=== PATIENT | male | born 1960 | race Caucasian/White ===

== ENCOUNTER 2017-05-20 11:30 | Emergency (ER) | payer BC ==
[2017-05-20 11:37] VITALS: RESP 18
[2017-05-20] MEDS ORDERED: methylPREDNISolone SOD SUCCI 125 MG/2 ML VIAL IM ONE (12:11)
[2017-05-20] MEDS ORDERED: HYDROcodone/APAP 10-325MG 1 EACH TAB PO ONE (12:11)
[2017-05-20] MEDS ORDERED: ORPHENADRINE 30 MG/ML 2 ML VIAL IM STA (12:11)
--- NOTE | 2017-05-20 12:52 | ED ---
Back Pain HPI - General Chief Complaint: Back Pain/Injury Stated Complaint: back pain Time Seen by Provider: 05/20/17 11:44 Source: patient, RN notes reviewed, old records reviewed Limitations: no limitations - History of Present Illness Initial Comments: This is a 56-year-old male present emergency department today chief complaint of back pain after taking a step up 3 feet up and pulling his back. . He reports his been radiating towards his right leg. He reports he has a "sleeping " sensation in his right leg. Patient states he has no saddle anesthesias. Denies any fevers chills. Denies any popping sensations in his back. Patient denies any recent fever, chills, shortness of breath, chest pain, abdominal pain, nausea vomiting, numbness or tingling, dysuria or hematuria, constipation or diarrhea, headaches or visual changes, or any other current symptoms - Related Data Home Medications Medication Instructions Recorded Confirmed Acetaminophen [Tylenol Arthritis] 1,300 mg PO Q12H PRN 05/20/17 05/20/17 Cyclobenzaprine [Flexeril] 10 mg PO DAILY PRN 05/20/17 05/20/17 Diazepam [Valium] 5 mg PO ONCE PRN 05/20/17 05/20/17 HYDROcodone/APAP 5-325MG [Golden 1 tab PO ONCE PRN 05/20/17 05/20/17 5-325] Ibuprofen [Motrin Ib] 800 mg PO Q6H PRN 05/20/17 05/20/17 Previous Rx's Medication Instructions Recorded Cyclobenzaprine [Flexeril] 10 mg PO TID #15 tab 05/20/17 Dexamethasone 0.75 mg PO DAILY #12 tab 05/20/17 Hydrocodone/Acetaminophen [Golden 1 tab PO Q6HR PRN #15 tab 05/20/17 5-325] Allergies Allergy/AdvReac Type Severity Reaction Status Date / Time No Known Allergies Allergy Verified 05/20/17 11:53 Review of Systems ROS Statement: Those systems with pertinent positive or pertinent negative responses have been documented in the HPI. ROS Other: All systems not noted in ROS Statement are negative. Past Medical History Past Medical History: No Reported History History of Any Multi-Drug Resistant Organisms: None Reported Past Surgical History: No Surgical Hx Reported Past Psychological History: No Psychological Hx Reported Smoking Status: Never smoker Past Alcohol Use History: None Reported Past Drug Use History: None Reported General Exam - General Exam Comments Initial Comments: Pleasant appearing 56-year-old male. No acute distress. Limitations: no limitations General appearance: alert, in no apparent distress Head exam: Present: atraumatic, normocephalic, normal inspection Eye exam: Present: normal appearance ENT exam: Present: normal exam, mucous membranes moist Neck exam: Present: normal inspection. Absent: tenderness, meningismus, lymphadenopathy Respiratory exam: Present: normal lung sounds bilaterally. Absent: respiratory distress, wheezes, rales, rhonchi, stridor Cardiovascular Exam: Present: regular rate, normal rhythm, normal heart sounds. Absent: systolic murmur, diastolic murmur, rubs, gallop, clicks GI/Abdominal exam: Present: soft, normal bowel sounds. Absent: distended, tenderness, guarding, rebound, rigid Extremities exam: Present: normal inspection, full ROM, normal capillary refill. Absent: tenderness, pedal edema, joint swelling, calf tenderness Back exam: Present: normal inspection, other (Right-sided sciatica notch tenderness.). Absent: full ROM (Patient reports pain with sitting up.) Neurological exam: Present: alert, oriented X3, CN II-XII intact Psychiatric exam: Present: normal affect, normal mood Skin exam: Present: warm, dry, intact, normal color. Absent: rash Course Vital Signs 05/20/17 05/20/17 11:34 13:21 Temperature 98.3 F 98.5 F Pulse Rate 80 72 Respiratory 18 18 Rate Blood Pressure 138/73 127/60 O2 Sat by Pulse 99 98 Oximetry Medical Decision Making - Medical Decision Making This is a 56-year-old male present emergency department today chief complaint of back pain after taking a step up 3 feet up and pulling his back. . He reports his been radiating towards his right leg. He reports he has a sleeping sensation in his right leg. Patient pain is reproduced with certain position. He is resting comfortably in bed, and has no focal tedneress at this time, only with certain movement. Patient given IM steriods and pain medication. Patient lumbar spine shows mild spondylolithesis. Discussed following up with PCP. Discussed return paramaters and return oarameters dsicussed. - Radiology Data Radiology results: report reviewed Lumbar spine shows mild spondylolisthesis. No evidence of any acute fracture or dislocations. Disposition Clinical Impression: Injury of sciatic nerve at hip and thigh level, left leg, initial encounter Disposition: HOME SELF-CARE Condition: Good Instructions: Acute Low Back Pain (ED) Additional Instructions: Patient advised to follow-up with primary care physicians. Take the steroid taper pack and pain medicine as prescribed. Return to the emergency department if any alarming signs or symptoms occur. Prescriptions: Cyclobenzaprine [Flexeril] 10 mg PO TID #15 tab Dexamethasone 0.75 mg PO DAILY #12 tab Hydrocodone/Acetaminophen [Golden 5-325] 1 tab PO Q6HR PRN #15 tab PRN Reason: Pain Referrals: None,Stated [Primary Care Provider] - 1-2 days Kiara Page MD [STAFF PHYSICIAN] - 1-2 days Molly Moscoso MD [STAFF PHYSICIAN] - 1-2 days Pete Moreau MD [STAFF PHYSICIAN] - 1-2 days Time of Disposition: 13:30
[2017-05-20 13:21] VITALS: BP 127/60; PULSE 72; TEMP 98.5
--- NOTE | 2017-05-20 13:26 | XR ---
EXAMINATION TYPE: XR lumbar spine 2 or 3V DATE OF EXAM: 05/20/2017 COMPARISON: NONE HISTORY: Back pain TECHNIQUE: 3 views FINDINGS: Lumbar vertebra have normal alignment. There is hypertrophic spurring anteriorly in the mid and lower lumbar spine. Posterior elements are intact. Sacroiliac joints appear normal. IMPRESSION: Mild spondylotic changes. No fracture seen.
== END 2017-05-20 14:07 | disposition home or self-care (01) ==
LOC: EC 11:30
DX: S74.02XA Injury of sciatic nerve at hip and thigh level, left leg, initial encounter (principal); X50.9XXA Other and unspecified overexertion or strenuous movements or postures, initial encounter
CPT/HCPCS: 72100; 99284; 96372 ×2; J2360; J2930

== ENCOUNTER → 2017-06-02 | Outpatient (CLI) | payer BC ==
[2017-06-02 09:30] LABS: Basophils # (A) 0.1 k/uL (0-0.2); Basophils % (A) 1 %; Eosinophils # (A) 0.3 k/uL (0-0.7); Eosinophils % (A) 3 %; HCT 46.2 % (39.0-53.0); HGB 15.3 gm/dL (13.0-17.5); Lymphocytes # (A) 1.8 k/uL (1.0-4.8); Lymphocytes % (A) 20 %; MCH 28.9 pg (25.0-35.0); MCHC 33.1 g/dL (31.0-37.0); MCV 87.2 fL (80.0-100.0); Mean Platelet Volume 7.2; Monocytes # (A) 0.5 k/uL (0-1.0); Monocytes % (A) 6 %; Neutrophils # (A) 6.2 k/uL (1.3-7.7); Neutrophils % (A) 70 %; Platelet Count 269 k/uL (150-450); RBC 5.31 m/uL (4.30-5.90); RDW 13.2 % (11.5-15.5); WBC 8.9 k/uL (3.8-10.6)
[2017-06-02 11:28] LABS: ALT 38 U/L (21-72); AST 22 U/L (17-59); Alkaline Phosphatase 64 U/L (38-126); Anion Gap 11 mmol/L; Blood Urea Nitrogen 12 mg/dL (9-20); Calcium 9.5 mg/dL (8.4-10.2); Carbon Dioxide 26 mmol/L (22-30); Chloride 107 mmol/L (98-107); Cholesterol 186 mg/dL (<200); Glucose 101 mg/dL (74-99); HDL Cholesterol 35 mg/dL (40-60); LDL Cholesterol,Calculated 128 mg/dL (0-99); Potassium 4.6 mmol/L (3.5-5.1); Sodium 144 mmol/L (137-145); Total Bilirubin 0.4 mg/dL (0.2-1.3); Total Protein 7.2 g/dL (6.3-8.2); Triglycerides 117 mg/dL (<150)
[2017-06-02 11:55] LABS: PSA Annual Screen 0.52 ng/mL (0.00-4.00)
== END | disposition home or self-care (01) ==
LOC: LABWHC1 08:56
PROVIDERS: ATTEND Family Medicine
DX: E66.9 Obesity, unspecified (principal); M54.16 Radiculopathy, lumbar region; Z80.42 Family history of malignant neoplasm of prostate; Z12.5 Encounter for screening for malignant neoplasm of prostate
CPT/HCPCS: 80061; 80053; 85025; 36415; G0103

== ENCOUNTER 2024-09-26 10:17 | Day surgery (SDC) | payer BC ==
[2024-09-26] MEDS: IV FLUID CONTINUATION 1,000 ML IV ONE (10:30)
[2024-09-26 10:40] VITALS: TEMP 97.5
[2024-09-26 10:46] LABS: Glucose,Whole Blood 105 mg/dL (70-110)
[2024-09-26] MEDS: LACTATED RINGERS 1,000 ML IV SCH (10:48)
[2024-09-26] MEDS ORDERED: PROPOFOL 10 MG/ML 20 ML VIAL IV ONE (11:43)
--- NOTE | 2024-09-26 11:55 | P.PCN ---
Date of Procedure: 09/26/24 Procedure(s) Performed: BRIEF HISTORY: Patient is a 63-year-old pleasant white male scheduled for an elective colonoscopy as a part of screening for colon cancer. PROCEDURE PERFORMED: Colonoscopy. PREOPERATIVE DIAGNOSIS: Screening for colon cancer. IV sedation per Anesthesia. PROCEDURE: After informed consent was obtained, the patient, was brought into the endoscopy unit. IV sedation was administered by Anesthesia under continuous monitoring. Digital rectal examination was normal. Initially the Olympus CF-160 flexible video colonoscope was then inserted in the rectum, gradually advanced into the cecum without any difficulty. Careful examination was performed as the scope was gradually being withdrawn. Ileocecal valve and the appendiceal orifice were visualized and appeared normal. Prep was excellent. Mucosa of the cecum, ascending colon, transverse colon, descending colon, sigmoid colon, and rectum appeared normal. Retroflexion was performed in the rectum and no lesions were seen. The patient tolerated the procedure well. IMPRESSION: Normal-appearing colon from rectum to cecum with no evidence of colorectal neoplasia. RECOMMENDATIONS: Findings of this examination were discussed with the patient as well as his family.. He was advised to have repeat screening colonoscopy in 10 years.
[2024-09-26 12:24] VITALS: BP 118/70; PULSE 67; RESP 17
== END 2024-09-26 12:24 | disposition home or self-care (01) ==
LOC: ORWHC2ENDO 10:17
PROVIDERS: ATTEND Internal Medicine Gastroenterology
DX: Z12.11 Encounter for screening for malignant neoplasm of colon (principal); E11.9 Type 2 diabetes mellitus without complications; Z79.84 Long term (current) use of oral hypoglycemic drugs
CPT/HCPCS: 45378; J2704